=== PATIENT | male | born 1965 | race Caucasian/White ===

== ENCOUNTER 2022-07-18 06:14 | Day surgery (SDC) | payer OTHER, SELFPAY ==
[2022-07-16 06:47] VITALS: BMI 26.5
[2022-07-18 06:30] VITALS: BP 119/80; PULSE 81; RESP 18; TEMP 36.3; O2SAT 96
[2022-07-18] MEDS: sodium chloride 0.9% 1,000 ML 30 ML IV (06:37)
--- NOTE | 2022-07-18 06:46 | ANES.PREANE2 ---
Pre-Anesthetic Assessment Height/Weight: Height 1.78 m Weight 83.915 kg Temp Pulse Resp BP Pulse Ox O2 Del Method 97.4 F L 81 18 119/80 96 07/18/22 06:30 07/18/22 06:30 07/18/22 06:30 07/18/22 06:30 07/18/22 06:30 07/18/22 06:30 Preop Diagnosis: Screening Operation Date: 07/18/22 08:00 Proposed Procedures p Colonoscopy 39830,Z12.11(Not Applicable) - Nicolas Lainez DO Familial anesthetic complications: None Was Beta Gabriella taken within 24 hours: N/A Was Clonidine taken within 24 hours: N/A Last intake: Intake Last Liquid Date 07/17/22 Last Liquid Time 22:00 Last Solid Date 07/16/22 Last Solid Time 21:30 Social Tobacco (Medical marijuana daily) and No alcohol Exam alert, oriented x 3, clear to auscultation bilaterally and regular rate & rhythm Airway Submandibular: within normal limits Cervical ROM: within normal limits Dentition: false History/ROS No significant history except as noted and No significant complaints Pulmonary None reported CV/HEM None reported None reported Hepatic None reported GI Gastroesophageal Reflux Disease (None this morning) Metabolic None reported Musc/skel Osteoarthritis/DJD Neuropsych Anxiety Anesthetic Plan ASA status: 2 Anesthesia: Anesthesia Evaluation, General and MAC Risk of > 500 ml blood loss (7ml/kg in children): No Medications/Allergies Home Medications Medication Instructions Recorded Confirmed Last Taken Type No Known Home Medications 05/19/22 07/16/22 Unknown History Allergies Allergy/AdvReac Type Severity Reaction Status Date / Time No Known Allergies Allergy Unverified 07/16/22 06:45 Current Medications Generic Name Dose Route Start Last Admin Trade Name Freq PRN Reason Stop Dose Admin Sodium Chloride 1,000 mls @ 30 mls/hr 07/18/22 06:30 07/18/22 06:37 Sodium Chloride 0.9% IV 07/19/22 06:29 30 mls/hr .Q24H ADI Administration PFSH Anesthesia Social History Smoking and tobacco status: never smoked Data Anesthesia Cardiac Studies: No Data to Display
--- NOTE | 2022-07-18 07:19 | P.HP_ITS ---
Providers/Chief Complaint Primary Care Provider: Toña Andrade Chief Complaint: encounter for screening History of Present Illness Alfie Ceballos is a 57 year old male here for colonoscopy Medications/Allergies Home Medications Medication Instructions Recorded Confirmed Last Taken Type No Known Home Medications 05/19/22 07/16/22 Unknown History Allergies Allergy/AdvReac Type Severity Reaction Status Date / Time No Known Allergies Allergy Unverified 07/16/22 06:45 PFSH Acute PFSH: Social History Smoking and tobacco status: never smoked Vitals/I&O/Wt Last Vital Signs Temp 97.4 F L 07/18/22 06:30 Pulse 81 07/18/22 06:30 Resp 18 07/18/22 06:30 BP 119/80 07/18/22 06:30 Pulse Ox 96 07/18/22 06:30 O2 Del Method 07/18/22 06:30 A&P Assessment and plan (1) Colon cancer screening: Plan Colonoscopy Attestations Medical Necessity Statement*: Home Coding Level of Care Code Acute [employer] Hel[employer] for Christina Fwd Diagnoses Colon cancer screening Z12.11
[2022-07-18 07:39] VITALS: BP 153/97; PULSE 66; RESP 16; TEMP 36.4; O2SAT 97
[2022-07-18 07:53] VITALS: BP 135/97; PULSE 61; RESP 16; O2SAT 97
--- NOTE | 2022-07-18 08:42 | ANE.PACU2 ---
Inpatient post-anesthesia follow up: Airway intact: Yes Vital signs: Temperature 97.6 F Pulse Rate 61 Respiratory Rate 16 Blood Pressure 135/97 Pulse Oximetry 97 Oxygen Delivery Me thod Room Air Oxygen Flow Rate 97 Fraction of Inspir ed Oxygen Hydration adequate: Yes Nausea and vomiting: No Pain level: 1 Mental status: Baseline
== END 2022-07-18 08:19 | disposition home or self-care (01) ==
PROVIDERS: PCP Physician Assistant; Visit Provider Surgery
PROC: 0DJD8ZZ Inspection of Lower Intestinal Tract, Via Natural or Artificial Opening Endoscopic (ICD-10-PCS; CPT 45378; principal; 2022-07-18 07:30)
DX: Z12.11 Encounter for screening for malignant neoplasm of colon (principal); K64.8 Other hemorrhoids; F12.90 Cannabis use, unspecified, uncomplicated; K21.9 Gastro-esophageal reflux disease without esophagitis
CPT/HCPCS: 45378; J2704; J7030